=== PATIENT | female | born 2005 | race Caucasian/White ===

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

== ENCOUNTER 2025-01-23 08:43 | Emergency (ER) | payer BC, SELFPAY ==
--- OUTSIDE RECORDS SUMMARY | 2024-06-14 07:17 | XMS_ITS | Continuity of Care Document ---
Author Organization [facility] Address [address] [address] [place] [address] Phone Care Team Providers Care Filter Press Pumper Name Role Phone Dawna KEENAN, Geovanny Unavailable Unavailable Allergies, Adverse Reactions, Alerts Substance Reaction Status Criticality triamcinolone Anaphylaxis Active No Information AMOXICILLIN TRIHYDRATE Rash Active No In formation POTASSIUM CLAVULANATE Rash Active No Inf ormation adhesive tape ItchingItching Active No Informati on prednisone Swelling mouth Active No Informatio n Medications Medication Instructions Dosage Effective Dates (start - stop) Status Comments Trulance 3 mg tablet take 1 tablet by oral route every day 3 MG - Active Qvar RediHaler 40 mcg/actuation HFA breath activated aerosol inhale 2 puff by inhalation route 2 times every day 80 MCG - Active elderberry fruit 350 mg capsule - Active apple cider vinegar 600 mg capsule - Active CRANBERRY (unknown strength) Not Available - Active B12 Active 1,000 mcg chewable tablet - Active ProAir HFA 90 mcg/actuation Aerosol Inhaler inhale 2 puff by inhalation route every day as needed 2 puff - Active multivitamin chewable tablet take 1 Tablet by Oral route every day - Active Procedures Procedure Date Offic/outpt E&m Estab Mod-hi 2 24 Ugi Endo; W/bx 1/mx Level Iv-surg Path Gross/micro 23 Offic/outpt E&m New Mod-hi Routine Serum Collection Breath Hydrogen Test Offic Cons New/estab Mod Routine Serum Collection Bld Ct; Hg/pltlt Ct Auto/compl 13 Sed Rate, Erythrocyte; Auto C-reactive Prot Thyroid Stim Hormone Advance Directives Directive Yes / No Effective Date File Name No Information Encounters Encounter Description Practice Location Reason(s) For Visit Diagnoses Date Provider Providers Copied on Encounter [facility], [address] [address], [place], [id number], [place] tel:[phone] [facility] No Information 5 Dawna Small. [address] [place] [address], [address], [id number], [place]. tel:[phone] [facility], [address] [address], [place], [id number], [place] tel:[phone] [facility] No Information 4 Dawna Small. [address] [place] [address], [address], [id number], [place]. tel:[phone] Offic/outpt E&m Estab Mod-hi 2 [facility], [address] [address], [place], [id number], [place] tel:[phone] [facility] GI Symptoms or Concerns (chief complaint) Unspecified abdominal painSkin rashConstipat ion, unspecified 4 Dawna Small. [address] [place] [address], [address], [id number], [place]. tel:[phone] Referring Provider: Referral Self, USE FOR SELF REFERRALS. [facility], [address] [address], [place], [id number], [place] tel:[phone] [facility] GI Symptoms or Concerns (chief complaint) Chronic abdominal painHeartburn Abdominal distension (gaseous)Unsp ecified abdominal pain 3 Alejandro León. [address] [facility], [address], [id number], [place]. tel:[phone] Referring Provider: Referral Self, USE FOR SELF REFERRALS. [facility], [address] [address], [place], [id number], [place] tel:[phone] [facility] Abdominal bloating 3 Dawna Small. [address], [id number], [place]. tel:[phone] Offic/outpt E&m New Mod-hi [facility], [address] [address], [place], [id number], [place] tel:[phone] [facility] GI Symptoms or Concerns (chief complaint) Skin rashAbdominal bloatingHeart burn 3 Dawna Small. [address] [facility], [address], [id number], [place]. tel:[phone] Consulting Provider: Geovanny Toney MD, [address], [address]. tel:[phone] ring Provider: Brenda Salcido [facility], [address] [place] [address], [place], [address]. tel:[phone] [facility], [address] [address], [place], [id number], [place] tel:[phone] [facility] No Information 3 Kailash Romeo. [address] [facility], [facility] [address], [place], [place], [id number], [place]. tel:[phone] [facility], [address] [address], [place], [id number], [place] tel:[phone] [facility] RLQ PainConstipat ion Unspecified 3 No Information Referring Provider: [place], [address], [place], [address]. tel:[phone] Offic Cons New/estab Mod [facility], [address] [address], [place], [place], [id number], [place] tel:[phone] [facility] Abdominal pain (chief complaint) Constipati on (chief complaint) RLQ PainConstipat ion Unspecified 3 Satya Myles. [address] [facility], [facility] [address], [place], [place], [id number], [place]. tel:[phone] [place]: [place], [address], [place], [address]. tel:[phone] Family History Family Member Type Diagnosis Age At Onset Mother Problem GERD Father Problem (finding) GERD Brother Problem (finding) Asthma Mother Problem (finding) GERD Immunizations Vaccine Date Status Comments Afluria Qd administered Note: M [facility] bi-directional interface ; Source: Other Registry meningococcal oligosaccharid e (groups A, C, Y and W-135) diphtheria toxoid conjugate vaccine (MCV4O) administered Note: [facility] bi-direct ional interface ; Source: Other Registry Afluria Qd administered Note: M [facility] bi-directional interface ; Source: Other Registry Afluria Qd administered Note: M [facility] bi-directional interface ; Source: Other Registry Afluria Qd administered Note: M [facility]IC bi-directional interface ; Source: Other Registry Afluria Qd administered Note: M [facility]IC bi-directional interface ; Source: Other Registry meningococcal oligosaccharid e (groups A, C, Y and W-135) diphtheria toxoid conjugate vaccine (MCV4O) administered Note: [facility] bi-direct ional interface ; Source: Other Registry tetanus toxoid, reduced diphtheria toxoid, and acellular pertussis vaccine, adsorbed administered Note: [facility] b i-directional interface ; Source: Other Registry Afluria Qd [id number] administered Note: M [facility] bi-directional interface ; Source: Other Registry Influenza, injectable,quadrivalent, preservative free, pediatric administered Note: [facility] bi-directional interface ; Source: Other Registry Influenza, seasonal, injectable administe red Note: [facility] bi- directional interface ; Source: Other Registry Influenza, seasonal, injecta ble, preservative free administered Note: [facility] bi-direct ional interface ; Source: Other Registry Diphtheria, tetanus toxoids and acellular pertussis vaccine, and poliovirus vaccine, inactivated administered Note: FL IC bi- directional interface ; Source: Other Registry measles, mumps and rubella v irus vaccine administered Note: [facility] bi-direct ional interface ; Source: Other Registry Havrix pediatric administered Note: [facility] bi-directional interface ; Source: Other Registry Influenza, seasonal, injectable administe red Note: [facility] bi- directional interface ; Source: Other Registry Novel [id number], all formulations administered Note: [facility] bi-direct ional interface ; Source: Other Registry Havrix pediatric administered Note: [facility] bi-directional interface ; Source: Other Registry Novel [id number], all formulations administered Note: [facility] bi-direct ional interface ; Source: Other Registry varicella virus vaccine administered Note : [facility] bi-directional interface ; Source: Other Registry Influenza, seasonal, injecta ble, preservative free administered Note: [facility] bi-direct ional interface ; Source: Other Registry Influenza, seasonal, injectable administe red Note: [facility] bi- directional interface ; Source: Other Registry Pneumovax administered Note: [facility] bi-d irectional interface ; Source: Other Registry DTaP-Haemophilus influenzae type b conjugate vaccine administered Note: [facility] bi-direct ional interface ; Source: Other Registry varicella virus vaccine administered Note : [facility] bi-directional interface ; Source: Other Registry Influenza, seasonal, injectable administe red Note: [facility] bi- directional interface ; Source: Other Registry measles, mumps and rubella v irus vaccine administered Note: [facility] bi-direct ional interface ; Source: Other Registry Energix Pediatric administered Note: [facility] bi-directional interface ; Source: Other Registry poliovirus vaccine, inactivated administe red Note: [facility] bi- directional interface ; Source: Other Registry diphtheria, tetanus toxoids and acellular pertussis vaccine administered Note: [facility] b i-directional interface ; Source: Other Registry Pneumovax administered Note: [facility] bi-d irectional interface ; Source: Other Registry Pneumovax administered Note: [facility] bi-d irectional interface ; Source: Other Registry Haemophilus influenzae type b conjugate and Hepatitis B vaccine administered Note: [facility] bi- directional interface ; Source: Other Registry diphtheria, tetanus toxoids and acellular pertussis vaccine administered Note: [facility] b i-directional interface ; Source: Other Registry poliovirus vaccine, inactivated administe red Note: [facility] bi- directional interface ; Source: Other Registry hepatitis B vaccine, unspeci fied formulation administered Note: [facility] bi-direct ional interface ; Source: Other Registry Pneumovax administered Note: [facility] bi-d irectional interface ; Source: Other Registry Haemophilus influenzae type b vaccine, PRP-T conjugate administered Note: [facility] bi-d irectional interface ; Source: Other Registry DTaP-hepatitis B and poliovi carlton vaccine administered Note: [facility] bi-direct ional interface ; Source: Other Registry Payers Payer name Insurance type Covered libertarian ID Authoriza tion(s) [employer] [facility] [id number] Social History Type Description Quantity Date Captured Comments Alcohol Use Details Unknown Caffeine Use Details Unknown Tobacco Use Status No Information Smoking Status No Information Sex Female Chief Complaint And Reason For Visit No Information Reason For Referral Reason For Referral No Information Plan Of Treatment Date Type Action Status Referral Ordered: Ultrasound Abdomen Appointment date/timeframe: 11/18/2023 ordered History Of Present Illness Encounter Date Complaint History Of Prese nt Illness GI Symptoms or Concerns Robyn is a pleasant 18 female who is being seen in follow-up today. Her previous office visit was on 01/13/2023, please review for details. Briefly, she was seen for evaluation of possible gluten sensitivity due to presence of a skin rash that were worse when she would consume gluten. 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 Since then, she has been back to being gluten restricted, does not have any rash. However, she continues to feel off with her bowel habits being irregular. She endorses postprandial epigastric discomfort with radiation to everywhere. She reports mild postprandial nausea, her weight is stable, there is no reported vomiting. She moves her bowels every 2-3 days, hard pebble like stools. she feels like her abdomen is very bloated after eating. She reports some abdominal cramps with bowel movements mostly left lower quadrant -resolution after she moves her bowels. She has history of migraine headache. She continues to deny any fever, chills, melena, hematochezia. GI Symptoms or Concerns GI Symptoms or Concerns I had th e pleasure of meeting Robyn in the office today, she is accompanied by her mom and referred to us for evaluation of possible gluten sensitivity, skin rash. She reports longstanding history of intermittent abdominal bloating and discomfort, somewhat vague GI symptoms w/o any focal pain -specifically with consumption of gluten. she was never officially diagnosed with celiac disease, but has been gluten free for the most part. Recently, she has been more concerned with recurrent pruritic rash on upper back / neck area, and then her extensor surfaces near wrist and lewis. These are worse whenever she consumes gluten, and they do not respond to topical steroids - which is also complicated because she apparently has allergy to steroids. She endorses reflux and regurgitation symptoms, reports loose stools 3-4 bowel movements daily- but often times alternating with periods of constipation. She denies any melena or hematochezia, denies any watery diarrhea. she denies any knowledge of iron-deficiency anemia.She reports history of migraine. she has been consuming gluten on a daily basis for last 4 weeks anticipating a blood test. However, she is also been more symptomatic because of eating freely.She denies any known family history of celiac disease, but multiple members who have some gluten related symptoms. She is of [place] ancestry. Functional Status Date Functional Assessmen t No Information Instructions Date Instruction Additional Infor mation No Information Assessments Type Assessment Date No Information Patient Care Teams Name Effective Dates (start - stop) Status Members No Information
[2025-01-23 08:45] VITALS: BP 133/92; PULSE 66; RESP 18; TEMP 36.6; O2SAT 99
[2025-01-23] MEDS: LIDOCAINE/EPINEP/TETRACAINE 3 ML GEL..ML. TOPICAL (09:06)
--- NOTE | 2025-01-23 09:08 | ED_ITS ---
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 She does have a history of his seen her chart of dermatitis Herpetiform rash. Related Data Home Medications ?Medication ?Instructions ?Recorded ?Confirmed levonorgestrel (Mirena) 1 device intrauterine ONCE 0 09/01/24 01/23/25 Allergies Allergy/AdvReac Type Severity Reaction Status Date / Time triamcinolone Allergy Severe Anaphylaxis Verified 01/23/25 08:50 amoxicillin Allergy Intermediate Rash Verified 01/23/25 08:50 horse dander Allergy Intermediate Hives Verified 01/23/25 08:50 prednisone Allergy Intermediate Anaphylaxis Verified 01/23/25 08:50 red dye Allergy Intermediate Rash Verified 01/23/25 08:50 Review of Systems Status of ROS: Reports: 10 or more systems reviewed and unremarkable except as noted in History and below [facility] Social History Smoking Status: Never smoker How often do you have a drink containing alcohol: never AUDIT-C Alcohol total score: 0 Non-prescribed substance use: denies use Exam Narrative: Exam Narrative: On examination patient is in no apparent distress on the left medial calf, there is an area of approximately 1 cm with pointing, consistent with a small pustule. There is a small rim of redness around it less than Sethi size. Moves her calf through full range of motion flexion, no pain with this. I discussed with her we will put some let on here for approximately 30 minutes, and then we can do a small neck incision and then she can squeeze it properly, Const: Vital Signs, click to edit/add: Vital Signs - 24 hr 01/23/25 08:45 Temperature 98 F Pulse Rate [Right Pulse Oximeter] 66 Respiratory Rate 18 Blood Pressure [Ri ght Upper Arm] 133/92 H Pulse Oximetry 99 Oxygen Delivery Me thod Room Air Course Course ED Course: nurse Heavenly and Harjit, after 40 minutes of let application, using a 15 scalpel blade I was able to make a very small 0.5 cm incision, and release approximately 3-4 mL of reddish bloody pus. Patient became slightly lightheaded, but improved after orange juice and crackers. Bacitracin dry dressing applied, daily. Follow-up tomorrow with Dermatology, allow to heal by secondary intention. No culture needed, no antibiotics orally. Return if increasing redness swelling or other signs and symptoms of infection. Vital Signs Vital signs: Initial Vital Signs Temperature 98 F 01/23/25 08:45 Temperature Source Temporal Artery Scan 01/23/25 08:45 Pulse Rate 66 01/23/25 08:45 Pulse Rhythm Regular 01/23/25 08:45 Pulse Strength 3+ Normal 01/23/25 08:45 Respiratory Rate 18 01/23/25 08:45 Blood Pressure 133/92 H 01/23/25 08:45 Blood Pressure Mean 105 01/23/25 08:45 Blood Pressure Position Sitting 01/23/25 08:45 Pulse Oximetry 99 01/23/25 08:45 Oxygen Delivery Method Room Air 01/23/25 08:45 Vital Signs Temperature 98 F 01/23/25 08:45 Pulse Rate 66 01/23/25 08:45 Respiratory Rate 18 01/23/25 08:45 Blood Pressure 133/92 H 01/23/25 08:45 Pulse Oximetry 99 01/23/25 08:45 Oxygen Delivery Method Room Air 01/23/25 08:45 Temperature 98 F 01/23/25 08:45 Pulse Rate 66 01/23/25 08:45 Respiratory Rate 18 01/23/25 08:45 Blood Pressure 133/92 H 01/23/25 08:45 Pulse Oximetry 99 01/23/25 08:45 Oxygen Delivery Method Room Air 01/23/25 08:45 Medications Administered Medications: Discontinued Medications Generic Name Dose Route Start Last Admin Trade Name Freq PRN Reason Stop Dose Admin Lidocaine/Epinephrine/Tetracaine 3 ml 01/23/25 09:02 01/23/25 09:06 Lidocaine/Epinep/Tetracaine 3 Ml Gel..Ml. TOPICAL 01/23/25 09:03 3 ml ONCE ONE Administration Discharge Plan Discharge Clinical Impression: Abscess Patient Disposition: Home w/ Parent or Adult Condition: Stable Instructions: Abscess (ED), Abscess Follow-up (ED), Abscess Incision and Drainage (DC) Additional Instructions: Home, rest, use bacitracin twice daily to the wound. Allow it to heal in. You can follow up with Dermatology tomorrow. Ensure that it is improving. Increasing redness swelling fevers chills then come back and be seen. Good luck with nursing school, very valuable for fashion. You will do well. Activity Level: Light activity Prescriptions: No Action Mirena 21 mcg/24hr (up to 8 yrs) 52 mg intrauterine device 1 device intrauterine ONCE Rx Instructions: as a single dose Follow Up/Referrals: Provider,Not a Local [Primary Care Provider, Family Practice] Stand Alone Forms: MyHealth Info Instructions
--- OUTSIDE RECORDS SUMMARY | 2025-01-23 09:09 | XMS_ITS | Clinical Summary ---
Author Organization [facility] [employer] [facility] [employer] [facility] Address [address] [place] [id number] Care Team Providers Care Wire Brush Maker Name Role Phone Brenda Lucio MD Primary Care Provi yesi Allergies Active Allergy Reactions Criticality Noted Date Comments Adhesive Tape-Silicones Itching 01/13/2023 Amoxicillin Rash Medium 01/13/2013 Adhesive Rash Low 07/16/2016 Plastic bandaids Horse Dander Hives 01/22/2022 Pollen Extracts Runny Nose Low 07/16/2016 Potassium Clavulanate Rash 01/13/2023 Prednisone Tongue Swelling,Anaphylaxis High 01/13/2013 D And C Red No.40 Hives High 10/02/2017 Triamcinolone Anaphylaxis High 08/26/2022 Medications diphenhydrAMINE (BENADRYL) 25 mg capsule Take 1 capsule by mouth every 4 hours if needed. 0 8 Active nebulizer accessories kitIndications:Mi ld persistent asthma without complication (HC) For home use. Length of need: lifetime 1 Kit 3 Active albuterol (PROVENTIL) 0.083 % neb solutionIndicatio ns:Mild persistent asthma without complication (HC) Inhale 3 mL (2.5 mg) via a nebulizer every 4 hours if needed for Shortness Of Breath or Wheezing. 90 mL 1 3 Active albuterol HFA (PRO-AIR; VENTOLIN; PROVENTIL) 90 mcg/actuation inhalerIndication s:Mild persistent asthma without complication (HC) Inhale 2 Puffs by mouth every 4 hours if needed for Shortness Of Breath or Wheezing. 2 Each 2 3 Active cranberry fruit (Cranberry) 450 mg tablet 3 Active elderberry fruit 350 mg cap 3 Active mecobalamin, vitamin B12, 1,000 mcg chew 3 Active beclomethasone dipropionate (Qvar RediHaler) 40 mcg/actuation HFA inhalerIndication s:Mild persistent asthma without complication (HC) Inhale 2 Puffs by mouth two times daily. Doesn't need a spacer or shaking. 1 Each 6 3 Active Active Problems Problem Noted Date Diagnosed Date Adjustment disorder with mixed anxiety and depre ssed mood 08/14/2021 Anxiety 01/09/2017 Chronic constipation 12/10/2016 Internal nasal lesion 06/21/2016 Seasonal allergies 12/30/2014 Mild persistent asthma without complication 03/04 Asthma 03/25/2011 Overview (04/13/2021): Unspecified asthma(493.90) ([facility]) Immunizations Immunization Administration Dates Next Due DTaP 2005,2005,2005 DTaP-HIB (TriHIBIT) 04/09/2006 HViN-NjrB-PZN (Pediarix) 2005 DTaP-IPV (Kinrix) 05/15/2010 HIB PRP-T (ActHIB,Hiberix) 2005,2005 HIB-HepB (Comvax) 2005 Hepatitis A (Peds) 05/15/2010,01/31/2009 Hepatitis B (Peds) 2005,2005, 006 Hepatitis B, Unspecified 2005 Inactivated Polio Vaccine 2005,2005, 2005 Influenza A (H1N1), Inactivated 03/18/2009,01/31 Influenza A (H1N1), Inactiva joseph (Age >=3 Years) 01/31/2009 Influenza, IIV3 (Age 6-35 mos) 1,12/03/2007,02/18/2007,01/21 Influenza, IIV3 (Age >=3 years) 01/14/20 14,01/18/2013,03/06/2012,01/11,12/27/2009,02/18/2007,01/21/2006 Influenza, IIV4 01/14/2022,,01/31/2020,01/25,01/19/2018,01/17/2017,01/16/2016 ,01/31/2015,01/13/2014,01/18/2013 Influenza, IIV4 (Age 6-35 Mos) 01/18/2013 MENINGOCOCCAL VACCINE 2 VIAL 2MO-55YO (MENVEO) 01/15/2021,01/16/2016 MMR 05/15/2010,01/21/2006 Pneumococcal conj 7-Valent (Prevnar 7) 0 04/09/2006,2005,2005,03/15 Tdap 01/16/2016 Varicella Vaccine 01/31/2009,01/21/2006 Family History Medical History Relation Name Comments Asthma Brother Asthma Mother possible Anesthesia Problem No Family History Relation Name Status Comments Brother Mother Social History Tobacco Use Types Packs/Day Years Used Date Smoking Tobacco: Never Passive Smoke Exposure: Never Smokeless Tobacco: Never Tobacco Cessation:Counseling Given: No Alcohol Use Standard Drinks/Week Comments Never 0 (1 standard drink = 0.6 oz pur e alcohol) PHQ-2 Answer Date Recorded PHQ-2 TOTAL SCORE 4 02/03/2023 Social Connections Answer Date Recorded Do you often feel lonely or isolated from those around you? 0 05/15/2023 Financial Resource Strain Answer Date R ecorded Difficulty of Paying Living Expenses 3 05/15/2023 Difficulty of Paying Living Expenses Not on file 05/15/2023 Food Insecurity Answer Date Recorded Do you worry your food will run out before you are able to buy more? 1 05/15/2023 Transportation Needs Answer Date Record ed Does lack of transportation keep you from medica l appointments? 1 05/15/2023 Does lack of transportation keep you from work, meetings or getting things that you need? 1 05/15/2023 Housing Stability Answer Date Recorded What is your housing situation today? 1 05/15/2023 Utilities Answer Date Recorded Do you have trouble paying f or utilities (for example, heat, electricity, water, phone)? 1 05/15/2023 Comments No Sex and Gender Information Value Date Recorded Sex Assigned at Not on file Legal Sex Female 4:29 PM [employer] C[employer] HELPER Gender Identity Not on file Sexual Orientation Not on file Occupation Industry Job Start Date Job End Date student Not on file Not on file Not on file Obstetrics History Para Term AB IAB SAB Ectopic Multiple Livin g Live Births 0 0 0 0 0 0 0 0 0 0 0 Last Filed Vital Signs Vital Sign Reading Time Taken Comments Blood Pressure 108/60 02/10/2024 1:52 PM [employer] C[employer] HELPER Pulse 67 02/10/2024 1:52 PM [employer] HELPER Temperature 36.7 C (98.1 F) 05/16/2023 1:44 PM CDT Respiratory Rate 16 04/27/2023 10:20 AM [employer] C[employer]TER HELPER Oxygen Saturation 99% 02/10/2024 1:52 PM [employer] HELPER Inhaled Oxygen Concentration - - Weight 62.2 kg (137 lb 1.6 oz) 02/10/2024 1:52 P M [employer] HELPER Height 159.3 cm (5' 2.72) 10/30/2023 1:32 PM CD T Body Mass Index - - Plan of Treatment Upcoming Encounters Date Type Department Care Team (Late st Contact Info) Description 02/09/2025 8:30 AM [employer] C[employer]TER HELPER Office Visit [facility] [address] [place] [address] Heather Garcia Michelle, DO [address] [place] [address] Health Maintenance Due Date Last Done Comments HIV for age 15-65 01/11/2020 HPV series for age 9-45 (1 - 3-dose series) 01/11/2020 Hepatitis C screening for age 18-79 2023 Chlamydia for age 16-24 02/04/2024 02/03/2023 Depression screening for age 12+ 02/04/2024 02/03/2023, 04/01/2022, 01/17/2022, Additional history exists Well Child Check for age 3-20 02/04/2024 02/03/2023, 01/14/2022, 01/15/2021, Additional history exists BMI (ht and wt on same day) for age 18+ 10/29/2024 10/30/2023, 02/03/2023 Influenza Vaccine (#1) 2024 2, 01/15/2021, 01/31/2020, Additional history exists Tetanus booster 01/15/2026 01/16/2016 RSV vaccine for adults or (1 - 1-dose 75+ series) 01/11/2080 Hepatitis B series for 19+ Completed 10/11, 2005, 2005, Additional history exists Pneumococcal series for age 6-49 Aged Out 04/09/2006, 2005, 2005, Additional history exists No longer eligible based on patient's age to complete this topic Meningococcal series for age 11-21 Completed 01/15/2021, 01/16/2016 Procedures Procedure Name Priority Date/Time Associated Diagnosis Comments GC CHLAMYDIA TRACH PROBE Routine 02/03/2023 4:45 PM [employer] C[employer] HELPER Routine screening for STI (sexually transmitted infection) from Last 3 Months or Most Recently Relevant to Health Maintenance Results * GC CHLAMYDIA TRACH PROBE (02/03/2023 4:45 PM CORDWOOD CUTTER HELPER) CHLAMYDIA PROBE Negative 6:27 PM [employer] C[employer]TER HELPER [facility] N GONORRHOEAE PROBE Negative 02/04/2023 6:27 PM C[employer]OD CUTTER HELPER [facility] Other URINE SPECIMEN / Unknown Non-Blood / Unknown 02/03/2023 4:45 PM [employer] C[employer]TER HELPER 02/03/2023 4:57 PM [employer] C[employer]TER HELPER us Brneda Lucio MD MICROBIOLOGY Fin al Result [facility] [address] [place] [address], [place] from Last 3 Months or Most Recently Relevant to Health Maintenance Insurance [facility] Advance Directives * Full Code (Latest Code Status on File) Date Activated Date Inactivated Comments 07/17/2016 9:00 AM 07/17/2016 3:01 PM Care Teams Wire Brush Maker Relationship Specialty Start Date End Date Brenda Lucio MD [address] [facility] [id number] PCP - General Pediatric 12/20/14
--- OUTSIDE RECORDS SUMMARY | 2025-01-23 09:09 | XMS_ITS | Clinical Summary ---
Author Organization [facility] Address [address] [address] Phone Care Team Providers Care Electronics Installer Name Role Phone Brenda Lucio MD Primary Care Provider [phone] Allergies Active Allergy Reactions Criticality Noted Date Comments Amoxicillin RASH Medium 08/23/2022 Prednisone Dyspnea High 08/23/2022 Medications albuterol (Proventil, Ventolin) (2.5 MG/3ML) 0.083% nebulizer solution Inhale 2.5 mg into the lungs every four hours as needed. 01/14/2022 Active albuterol HFA (Proair HFA, Ventolin HFA) 108 (90 Base) MCG/ACT inhalation aerosol Inhale 2 Puffs into the lungs every four hours as needed. 01/13/2014 Active beclomethasone HFA (Qvar RediHaler) 40 MCG/ACT Aerosol Breath Activated Inhale 2 Puffs into the lungs two times a day. 01/14/2022 Active cetirizine (ZyrTEC) 10 MG tablet Take 10 mg by mouth one time a day as needed. 10/15/2012 Active diphenhydrAMINE (Benadryl) 25 MG capsule Take 25 mg by mouth every four hours as needed. 07/09/2017 Active Social History Tobacco Use Types Packs/Day Years Used Date Smoking Tobacco: Never Assessed EH IP Custom IPV Answer Date Recorded Do you feel UNSAFE in any of your personal relationships with your family members or any other acquaintances? No 2022 Comments Unknown Sex and Gender Information Value Date Recorded Sex Assigned at Not on file Legal Sex Female 2:34 PM CDT Gender Identity Not on file Sexual Orientation Not on file Last Filed Vital Signs Vital Sign Reading Time Taken Comments Blood Pressure 110/69 08/23/2022 3:00 PM CDT Pulse 70 08/23/2022 3:00 PM CDT Temperature 36.7 C (98 F) 08/23/2022 2:45 PM CDT Respiratory Rate 24 08/23/2022 2:45 PM CDT Oxygen Saturation 100% 08/23/2022 3:00 PM CDT Inhaled Oxygen Concentration - - Weight 63.5 kg (140 lb) 08/23/2022 2:45 PM CDT Height 160 cm (5' 3) 08/23/2022 2:45 PM CDT Body Mass Index 24.8 08/23/2022 2:45 PM CDT Plan of Treatment Not on file Insurance [employer] Care Teams Electronics Installer Relationship Specialty Start Date End Date Brenda Lucio MD [address] [place] [id number] PCP - General Pediatrics 08/23/22
== END 2025-01-23 10:24 | disposition home or self-care (01) ==
PROVIDERS: Emergency Provider Family Medicine
DX: L02.416 Cutaneous abscess of left lower limb (principal)
CPT/HCPCS: 10060; 99283